=== PATIENT | male | born 2000 | race Caucasian/White ===

== ENCOUNTER 2020-02-02 13:24 | Emergency (ER) | payer BC, OTHER ==
[~2020-02-02] VITALS: Ht 198.1 cm; Wt 81.6 kg
[2020-02-02 13:26] VITALS: BP 115/78
[2020-02-02 14:06] LABS: BASOPHILS % (AUTO) 1.2 % (0.0-2.0); EOSINOPHILS % (AUTO) 1.2 % (0.0-3.0); HEMATOCRIT 42.6 % (42.0-52.0); HEMOGLOBIN 14.8 G/DL (14.2-18.0); LYMPHOCYTES % (AUTO) 7.9 % (20.0-45.0); MEAN CORPUSCULAR VOLUME 86 FL (80-99); MONOCYTES % (AUTO) 5.5 % (1.0-10.0); NEUTROPHILS % (AUTO) 84.2 % (45.0-75.0); PLATELET COUNT 174 K/UL (150-450); RED BLOOD COUNT 4.96 M/UL (4.70-6.10); RED CELL DISTRIBUTION WIDTH 11.2 % (11.6-14.8); WHITE BLOOD COUNT 8.9 K/UL (4.8-10.8)
[2020-02-02 14:18] LABS: ANION GAP 6 mmol/L (5-15); BLOOD UREA NITROGEN 14 mg/dL (7-18); CALCIUM 9.2 MG/DL (8.5-10.1); CARBON DIOXIDE 30 MMOL/L (21-32); CHLORIDE 103 MMOL/L (98-107); CREATININE 1.2 MG/DL (0.55-1.30); POTASSIUM 4.3 MMOL/L (3.5-5.1); SODIUM 139 MMOL/L (136-145)
[2020-02-02 14:22] LABS: ALANINE AMINOTRANSFERASE 42 U/L (12-78); ALBUMIN 4.2 G/DL (3.4-5.0); ALBUMIN/GLOBULIN RATIO 1.6 (1.0-2.7); ALKALINE PHOSPHATASE 80 U/L (46-116); ASPARTATE AMINO TRANSFERASE 20 U/L (15-37); BILIRUBIN,TOTAL 0.8 MG/DL (0.2-1.0)
--- NOTE | 2020-02-02 14:22 | Emergency Room Report ---
History of Present Illness General Chief Complaint: Overdose Source: Patient Present Illness HPI 19 YO male presents to the ED brought by EMS for AMS. Pt. admits to smoking 1/4 pill of Fentanyl and taking 4mg Clonazolam ( content designer drug) PO today. Per EMS pt. friend and mother called 911 because he was in the bathroom and not responding /opening the door for them. Pt. denies hitting his head. He denies midline neck or back pain. Pt. reports He did trip and hit his knee earlier however he "walked it off". Pt. denies bruises, open wounds or bleeding. Pt. denies suicide attempt. He denies hx of PSA's. He reports hx of Depression and was previously on zoloft but self D/C's over a year ago. He reports he recently attended rehab earlier this year and was sober for approximately 4 months from alcohol which was his previous drug of choice. Patient reports history of alcohol abuse which was causing him to have frequent episodes of pancreatitis. Patient states that he no longer uses alcohol however he does use prescription medications that he purchases on the streets. Patient states that he typically takes approximately 6 mg of Clonazolam ( content designer drug) daily. He reports he uses half a pill of fentanyl once or twice a week and he smokes it. He denies IV drug use. He denies SI or HI at this time. He reports his depression has increased the last few months and rates his depression as 8/10 in severity. Pt. denies hx of opiate OD in the past or need to be administered Narcan. He denies history of heart or liver disease. He denies history of TBI. He reports drug and alcohol dependence runs in his family on both sides. Allergies: Coded Allergies: No Known Allergies (Unverified , 02/02/20) COVID-19 Screening Contact w/high risk pt: No Experienced COVID-19 symptoms?: No COVID-19 Testing performed [employer]: No Patient History Past Medical History: see triage record Past Surgical History: none Pertinent Family History: none Social History: Reports: drug use Reviewed Nursing Documentation: PMH: Agreed; PSxH: Agreed Nursing Documentation-PMH Past Medical History: No Stated History Review of Systems All Other Systems: negative except mentioned in HPI Physical Exam Vital Signs Date Time Temp Pulse Resp B/P (MAP) Pulse Ox O2 Delivery O2 Flow Rate FiO2 02/02/20 13:18 97.9 89 18 115/78 (90) 96 Room Air Sp02 EP Interpretation: reviewed, normal General Appearance: no apparent distress, alert, GCS 15, non-toxic, lethargic Head: normocephalic, atraumatic Eyes: bilateral eye normal inspection, bilateral eye PERRL ENT: hearing grossly normal, normal voice Neck: full range of motion, no bony tend Respiratory: chest non-tender, lungs clear, normal breath sounds, no respiratory distress, no accessory muscle use, no wheezing, speaking full sentences Cardiovascular #1: regular rate, rhythm, normal capillary refill Cardiovascular #2: 2+ radial (R), 2+ radial (L) Gastrointestinal: non tender, soft Musculoskeletal: back normal, normal range of motion, gait/station normal, non- tender Neurologic: alert, motor strength/tone normal, oriented x3, sensory intact, responsive, speech normal Psychiatric: judgement/insight normal Skin: normal color Lymphatic: no adenopathy Medical Decision Making PA Attestation Dr. Lopez is my supervising Physician whom patient management has been discussed with. Diagnostic Impression: Primary Impression: Drug overdose Qualified Codes: T50.904A - Poisoning by unspecified drugs, medicaments and biological substances, undetermined, initial encounter ER Course 19 YO male presents to the ED brought by EMS for AMS. Pt. admits to smoking 1/4 pill of Fentanyl and taking 4mg Clonazolam ( content designer drug) PO today. Per EMS pt. friend and mother called 911 because he was in the bathroom and not responding /opening the door for them. Pt. denies hitting his head. He denies midline neck or back pain. Pt. reports He did trip and hit his knee earlier however he "walked it off". Pt. denies bruises, open wounds or bleeding. Pt. denies suicide attempt. He denies hx of PSA's. He reports hx of Depression and was previously on zoloft but self D/C's over a year ago. He reports he recently attended rehab earlier this year and was sober for approximately 4 months from alcohol which was his previous drug of choice. Patient reports history of alcohol abuse which was causing him to have frequent episodes of pancreatitis. Patient states that he no longer uses alcohol however he does use prescription medications that he purchases on the streets. Patient states that he typically takes approximately 6 mg of Clonazolam ( content designer drug) daily. He reports he uses half a pill of fentanyl once or twice a week and he smokes it. He denies IV drug use. He denies SI or HI at this time. He reports his depression has increased the last few months and rates his depression as 8/10 in severity. Pt. denies hx of opiate OD in the past or need to be administered Narcan. He denies history of heart or liver disease. He denies history of TBI. He reports drug a nd alcohol dependence runs in his family on both sides. Pt is hyperactive, and has a very anxious and restless affect. Ddx considered but are not limited to OD, SI/HI, psychosis, UTI, intoxication, opiate abuse, electrolyte imbalance Vital signs: are WNL, pt. is afebrile H&PE are most consistent with drug intoxication and polypharmacy. Pt. is alert and oriented, He is noted to be mildly lethargic when not engaged in conversation. Patient is sitting up comfortably, no signs of respiratory distress. He is maintaining his own airway. ORDERS: -CBC, CMP: WNL -UA: -UDS: -Serum ETOH: negative -Salicylates and Acetaminophen - no acute intoxication. ED INTERVENTIONS: - 1 Liter NS POISON CONTROL : Recommended symptomatic treatment, Narcan and patient becomes apneic, and observation for 6 hours. DISPOSITION: Patient is stable for discharge home after 6-hour period of ob servation patient and oriented he is not demonstrated any episodes of apnea. Patient is able to maintain his own airway. Discussed with patient that he will be discharged with prescriptions for Narcan in addition to multiple drug and alcohol resource information as well as [facility] mental health resource information for follow-up of his increasing depression. Patient is being disc harged home to his mother who is here to pick him up. Labs Test 02/02/20 13:33 02/02/20 13:50 02/02/20 15:25 POC Whole Blood Glucose 189 MG/DL (74-106) White Blood Count 8.9 K/UL (4.8-10.8) Red Blood Count 4.96 M/UL (4.70-6.10) Hemoglobin 14.8 G/DL (14.2-18.0) Hematocrit 42.6 % (42.0-52.0) Mean Corpuscular Volume 86 FL (80-99) Mean Corpuscular Hemoglobin 29.9 PG (27.0-31.0) Mean Corpuscular Hemoglobin Concent 34.8 G/DL (32.0-36.0) Red Cell Distribution Width 11.2 % (11.6-14.8) Platelet Count 174 K/UL (150-450) Mean Platelet Volume 9.2 FL (6.5-10.1) Neutrophils (%) (Auto) 84.2 % (45.0-75.0) Lymphocytes (%) (Auto) 7.9 % (20.0-45.0) Monocytes (%) (Auto) 5.5 % (1.0-10.0) Eosinophils (%) (Auto) 1.2 % (0.0-3.0) Basophils (%) (Auto) 1.2 % (0.0-2.0) Sodium Level 139 MMOL/L (136-145) Potassium Level 4.3 MMOL/L (3.5-5.1) Chloride Level 103 MMOL/L (98-107) Carbon Dioxide Level 30 MMOL/L (21-32) Anion Gap 6 mmol/L (5-15) Blood Urea Nitrogen 14 mg/dL (7-18) Creatinine 1.2 MG/DL (0.55-1.30) Estimat Glomerular Filtration Rate > 60 mL/min (>60) Glucose Level 165 MG/DL (74-106) Calcium Level 9.2 MG/DL (8.5-10.1) Total Bilirubin 0.8 MG/DL (0.2-1.0) Aspartate Amino Transf (AST/SGOT) 20 U/L (15-37) Alanine Aminotransferase (ALT/SGPT) 42 U/L (12-78) Alkaline Phosphatase 80 U/L (46-116) Total Protein 6.8 G/DL (6.4-8.2) Albumin 4.2 G/DL (3.4-5.0) Globulin 2.6 g/dL Albumin/Globulin Ratio 1.6 (1.0-2.7) Salicylates Level 0.6 ug/mL (2.8-20) Acetaminophen Level < 2 MCG/ML (10-30) Serum Alcohol < 3 mg/dL Urine Opiates Screen Negative (NEGATIVE) Urine Barbiturates Screen Negative (NEGATIVE) Phencyclidine (PCP) Screen Negative (NEGATIVE) Urine Amphetamines Screen Negative (NEGATIVE) Urine Benzodiazepines Screen Positive (NEGATIVE) Urine Cocaine Screen Negative (NEGATIVE) Urine Marijuana (THC) Screen Positive (NEGATIVE) Last Vital Signs Date Time Temp Pulse Resp B/P (MAP) Pulse Ox O2 Delivery O2 Flow Rate FiO2 02/02/20 13:26 89 18 Room Air 02/02/20 13:26 97.9 115/78 96 Disposition: HOME, SELF-CARE Condition: Stable Scripts Naloxone HCl (Narcan) 4 Mg [place] 4 MG NS PRN, #2 SPRAY 2 Refills Prov: Ashlie Valles 02/02/20 Referrals: NOT CHOSEN IPA/MD,REFERRING (PCP) [facility] Patient Instructions: Drug Overdose Additional Instructions: Only take medications which are prescribed to you and take them exactly as directed. YOU HAVE BEEN IDENTIFIED HAVING HIGH RISK OF OPIATE OVERDOSE/. YOU ARE BEING GIVEN A PRESCRIPTION FOR NARCAN TO BE USED IN AN EMERGENCY. IT IS AN OPIATE REVERSAL. TO BE TAKEN IF UNCONSCIOUS, NOT BREATHING, OR WHEN SKIN COLOR/LIPS/NAILS ARE BLUE IN COLOR. PLEASE KEEP WITH YOU AT ALL TIME ESPECIALLY IF ACTIVELY USING OPIATES. YOU ARE ALSO GIVEN A LIST WITH CONTACT INFORMATION FOR DRUG DEPENDENCE/REHABILITATION RESOURCES SHOULD YOU BE WILLING/INTERESTED IN RECEIVING HELP WITH DRUGS OR ALCOHOL. --- you are also given [facility] ---resource information Follow up with a Primary Care Provider in 3-5 days, even if your symptoms have resolved. --Please review list of primary care clinics, if you do not already have a primary care provider,also review list of Drug/alcohol resources. Return sooner to ED if new symptoms occur, or current symptoms become worse. - Please note that this Emergency Department Report was dictated using [employer] operator technology software, occasionally this can lead to erroneous entry secondary to interpretation by the dictation equipment. Ashlie Valles Feb 02, 2020 14:22
[2020-02-02 15:00] VITALS: BP 118/64
[2020-02-02 17:50] VITALS: BP 112/61
[2020-02-02 19:17] VITALS: BP 126/75
[2020-02-02] MEDS ORDERED: NARCAN4 MG NS (19:27)
[2020-02-02 19:45] VITALS: BP 121/72
== END 2020-02-02 19:45 | disposition home or self-care (01) ==
LOC: EDBD 13:24 → EMR 13:45
DX: T40.4X1A Poisoning by other synthetic narcotics, accidental (unintentional), initial encounter (principal); Y92.9 Unspecified place or not applicable; T42.4X1A Poisoning by benzodiazepines, accidental (unintentional), initial encounter; F32.9 Major depressive disorder, single episode, unspecified
CPT/HCPCS: 36415; 80053; 80307; 82962; 85025; 96360; 99284; G0480; J7030